=== PATIENT | male | born 1960 | race Caucasian/White ===

== ENCOUNTER 2017-09-01 23:05 | Emergency (ER) | payer MEDICARE ==
[2017-09-01 23:12] VITALS: RESP 18
[2017-09-01] MEDS ORDERED: SODIUM CHLORIDE 0.9% 500 ML IV STA (23:34)
--- NOTE | 2017-09-01 23:42 | ED ---
Syncope HPI - General Chief Complaint: Syncope Stated Complaint: possible afib Time Seen by Provider: 09/01/17 23:15 Source: patient Mode of arrival: ambulatory Limitations: no limitations - History of Present Illness Initial Comments: This patient is 56-year-old man who presents with complaint that he believes is atrial fibrillation at [facility]. The patient states that he has had intermittent symptoms like this going on for about a year and has been told he has paroxysmal atrial fibrillation. Tonight around 4 hours ago, he started feeling somewhat lightheaded like he may pass out as well as feeling anxious. The patient states it came on while he was lying down but he felt that he needed to get up. When he tried to get up she felt like he was going to pass out. He also was feeling a little short of breath. The patient denies chest pain but states that he does have chronic neck pain. No diaphoresis. No nausea or vomiting. The patient states that he does feel better since he has been here. MD Complaint: felt faint, almost passed out Onset/Timin -: hour(s) Prodromal Symptoms: lightheaded, palpitations, shortness of breath, other ( Anxious) History: other (Atrial fibrillation) - Related Data Home Medications Medication Instructions Recorded Confirmed Cyclobenzaprine [Flexeril] 10 mg PO HS PRN 10/12/14 10/16/14 Gabapentin [Neurontin] 800 mg PO HS 10/12/14 10/16/14 HYDROcodone/APAP 10-325MG [[place] 1 each PO Q6H PRN 10/12/14 10/16/14 10] Previous Rx's Medication Instructions Recorded HYDROcodone/APAP 7.5-325MG [[place] 1 each PO Q4H PRN #60 tab 10/19/14 7.5] Azithromycin [Zithromax Z-pack] 250 mg PO DIRECTED #6 tab 09/02/17 Allergies Allergy/AdvReac Type Severity Reaction Status Date / Time No Known Allergies Allergy Verified 09/01/17 23:12 Review of Systems ROS Statement: Those systems with pertinent positive or pertinent negative responses have been documented in the HPI. ROS Other: All systems not noted in ROS Statement are negative. Constitutional: Denies: fever, chills Eyes: Denies: vision change Respiratory: Reports: as per HPI, dyspnea. Denies: cough, wheezes Cardiovascular: Reports: syncope (Near syncope). Denies: chest pain, palpitations, orthopnea, edema Gastrointestinal: Denies: abdominal pain, nausea, vomiting Genitourinary: Denies: dysuria, hematuria Musculoskeletal: Reports: other (Chronic neck pain) Skin: Denies: rash Neurological: Denies: headache Psychiatric: Reports: anxiety Past Medical History Past Medical History: COPD Additional Past Medical History / Comment(s): 10/16/14 Pt admitted to the floor s /p reversal of colostomy. Other HX: RUPTURED DIVERTICULI. CHRONIC BACK PAIN ( CERVICAL & LUMBAR). History of Any Multi-Drug Resistant Organisms: None Reported Past Surgical History: Bowel Resection, Orthopedic Surgery Additional Past Surgical History / Comment(s): ARTHOscopy OF RIGHT KNEE. BOWEL RESECTION WITH COLOSTOMY (JUL 27, 2014 @ [facility], ). BENIGN TUMOR REMOVED AT BASE OF THROAT. Past Anesthesia/Blood Transfusion Reactions: No Reported Reaction Past Psychological History: No Psychological Hx Reported Smoking Status: Former smoker Past Alcohol Use History: None Reported Past Drug Use History: Marijuana - Past Family History Sister(s) Family Medical History: Liver Disease Additional Family Medical History / Comment(s): NON ETOH, CIRRHOSIS (). General Exam Limitations: no limitations General appearance: alert, in no apparent distress Head exam: Present: atraumatic, normocephalic Eye exam: Present: normal appearance. Absent: scleral icterus, conjunctival injection ENT exam: Present: normal oropharynx Neck exam: Present: normal inspection Respiratory exam: Present: normal lung sounds bilaterally. Absent: respiratory distress, wheezes, rales, rhonchi, stridor, chest wall tenderness Cardiovascular Exam: Present: normal rhythm, bradycardia (Rate approximately 56 at my exam), normal heart sounds. Absent: systolic murmur, diastolic murmur, rubs, gallop GI/Abdominal exam: Present: soft. Absent: distended, tenderness, guarding, rebound, rigid, mass Extremities exam: Present: normal inspection, normal capillary refill. Absent: pedal edema, calf tenderness Back exam: Present: normal inspection. Absent: CVA tenderness (R), CVA tenderness (L) Neurological exam: Present: alert Skin exam: Present: warm, dry, intact, normal color. Absent: rash Course Vital Signs 09/01/17 23:09 Temperature 98.7 F Pulse Rate 63 Respiratory 18 Rate Blood Pressure 130/78 O2 Sat by Pulse 96 Oximetry EKG Findings - EKG Results: EKG: interpreted by ERMD, sinus rhythm (With sinus arrhythmia), normal axis, normal QRS, normal ST/T EKG shows: bradycardia (Rate 53 bpm) Medical Decision Making - Lab Data Result diagrams: 09/01/17 23:40 09/01/17 23:40 Lab Results 09/01/17 09/01/17 09/01/17 Range/Units 23:40 23:40 23:40 WBC 13.2 H (3.8-10.6) k/uL RBC 5.17 (4.30-5.90) m/uL Hgb 15.4 (13.0-17.5) gm/dL Hct 47.5 (39.0-53.0) % MCV 91.9 (80.0-100.0) fL MCH 29.7 (25.0-35.0) pg MCHC 32.3 (31.0-37.0) g/dL RDW 13.9 (11.5-15.5) % Plt Count 272 (150-450) k/uL Neutrophils % 80 % Lymphocytes % 12 % Monocytes % 5 % Eosinophils % 1 % Basophils % 1 % Neutrophils # 10.5 H (1.3-7.7) k/uL Lymphocytes # 1.6 (1.0-4.8) k/uL Monocytes # 0.7 (0-1.0) k/uL Eosinophils # 0.1 (0-0.7) k/uL Basophils # 0.1 (0-0.2) k/uL Sodium 142 (137-145) mmol/L Potassium 4.5 (3.5-5.1) mmol/L Chloride 108 H (98-107) mmol/L Carbon Dioxide 24 (22-30) mmol/L Anion Gap 10 mmol/L BUN 19 (9-20) mg/dL Creatinine 0.80 (0.66-1.25) mg/dL Est GFR (MDRD) Af Amer >60 (>60 ml/min/1.73 sqM) Est GFR (MDRD) Non-Af >60 (>60 ml/min/1.73 sqM) Glucose 115 H (74-99) mg/dL Calcium 10.0 (8.4-10.2) mg/dL Magnesium 2.0 (1.6-2.3) mg/dL Total Bilirubin 0.2 (0.2-1.3) mg/dL AST 23 (17-59) U/L ALT 31 (21-72) U/L Alkaline Phosphatase 53 (38-126) U/L Total Creatine Kinase 89 (55-170) U/L Total Protein 6.2 L (6.3-8.2) g/dL Albumin 3.9 (3.5-5.0) g/dL Disposition Clinical Impression: Pneumonia Disposition: HOME SELF-CARE Condition: Good Instructions: Pneumonia (ED) Prescriptions: Azithromycin [Zithromax Z-pack] 250 mg PO DIRECTED #6 tab Referrals: Betina Rothman MD [Primary Care Provider] - 1-2 days
[2017-09-02 00:06] LABS: Basophils # (A) 0.1 k/uL (0-0.2); Basophils % (A) 1 %; Eosinophils # (A) 0.1 k/uL (0-0.7); Eosinophils % (A) 1 %; HCT 47.5 % (39.0-53.0); HGB 15.4 gm/dL (13.0-17.5); Lymphocytes # (A) 1.6 k/uL (1.0-4.8); Lymphocytes % (A) 12 %; MCH 29.7 pg (25.0-35.0); MCHC 32.3 g/dL (31.0-37.0); MCV 91.9 fL (80.0-100.0); Mean Platelet Volume 8.1; Monocytes # (A) 0.7 k/uL (0-1.0); Monocytes % (A) 5 %; Neutrophils # (A) 10.5 k/uL (1.3-7.7); Neutrophils % (A) 80 %; Platelet Count 272 k/uL (150-450); RBC 5.17 m/uL (4.30-5.90); RDW 13.9 % (11.5-15.5); WBC 13.2 k/uL (3.8-10.6)
[2017-09-02 00:18] LABS: ALT 31 U/L (21-72); AST 23 U/L (17-59); Albumin 3.9 g/dL (3.5-5.0); Alkaline Phosphatase 53 U/L (38-126); Anion Gap 10 mmol/L; Blood Urea Nitrogen 19 mg/dL (9-20); Carbon Dioxide 24 mmol/L (22-30); Chloride 108 mmol/L (98-107); Glucose 115 mg/dL (74-99); Potassium 4.5 mmol/L (3.5-5.1); Sodium 142 mmol/L (137-145); Total Bilirubin 0.2 mg/dL (0.2-1.3); Total Protein 6.2 g/dL (6.3-8.2)
[2017-09-02 00:24] LABS: Creatine Kinase 89 U/L (55-170)
--- NOTE | 2017-09-02 00:24 | XR ---
EXAM: XR Chest, 1 View CLINICAL HISTORY: Reason: syncope TECHNIQUE: Frontal view of the chest. COMPARISON: None. FINDINGS: Lungs: Unremarkable. No consolidation. Pleural space: Small left pleural effusion. No large pneumothorax. Heart: Unremarkable. No cardiomegaly. Mediastinum: Unremarkable. Bones/joints: Unremarkable. IMPRESSION: Small left pleural effusion. Infection cannot be excluded.
[2017-09-02 00:30] LABS: D-Dimer <0.17 mg/L FEU (<0.60); INR 1.1 (<1.2); Partial Thromboplastin Time 27.3 sec (22.0-30.0); Prothrombin Time 10.7 sec (9.0-12.0)
[2017-09-02 00:37] LABS: Creatine Kinase MB 0.8 ng/mL (0.0-2.4); Troponin I <0.012 ng/mL (0.000-0.034)
[2017-09-02] MEDS ORDERED: cefTRIAXone IN SWFI 1,000 MG/10 ML SYRINGE IVP STA (00:37)
[2017-09-02] MEDS ORDERED: AZITHROMYCIN 500 MG TAB PO STA (00:37)
[2017-09-02 01:28] LABS: Appearance,Urine Clear (Clear); Bilirubin,Urine Negative (Negative); Blood,Urine Negative (Negative); Color,Urine Light Yellow; Glucose,Urine (UA) Negative (Negative); Ketones,Urine Negative (Negative); Leukocyte Esterase,Urine Negative (Negative); Nitrite,Urine Negative (Negative); Protein,Urine Negative (Negative); Specific Gravity,Urine 1.008 (1.001-1.035); Urobilinogen,Urine <2.0 mg/dL (<2.0)
[2017-09-02 02:38] VITALS: BP 128/73; PULSE 62; TEMP 98.3
== END 2017-09-02 02:38 | disposition home or self-care (01) ==
LOC: EC 23:05
DX: J18.9 Pneumonia, unspecified organism (principal); I48.91 Unspecified atrial fibrillation; Z79.899 Other long term (current) drug therapy; Z87.891 Personal history of nicotine dependence
CPT/HCPCS: 36415; 93005; 85379; 80053; 82550; 82553; 83735; 84484; 85025; 85610; 85730; 81003; 71045; 99284; 96374; J0696

== ENCOUNTER 2017-10-05 22:53 | Emergency (ER) | payer MEDICARE ==
[2017-10-05 23:01] VITALS: TEMP 97
[2017-10-05] MEDS ORDERED: SODIUM CHLORIDE 0.9% 1,000 ML IV STA (23:32)
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
[2017-10-05 23:48] VITALS: RESP 16
--- NOTE | 2017-10-06 00:17 | XR ---
EXAMINATION TYPE: XR chest 2V DATE OF EXAM: 10/06/2017 COMPARISON: 09/01/2017 HISTORY: Difficulty breathing TECHNIQUE: Frontal and lateral views of the chest are obtained. FINDINGS: There is slight blunting of left costophrenic angle. Heart size is normal. There are no hi lar masses. There are chest leads. Bony thorax is intact. IMPRESSION: There is pleural diaphragmatic scarring at the lateral left lung base without change com pared to old exam. Normal heart.
[2017-10-06 00:22] LABS: Basophils # (A) 0.1 k/uL (0-0.2); Basophils % (A) 1 %; Eosinophils # (A) 0.2 k/uL (0-0.7); Eosinophils % (A) 2 %; HCT 47.5 % (39.0-53.0); HGB 16.2 gm/dL (13.0-17.5); Lymphocytes # (A) 1.8 k/uL (1.0-4.8); Lymphocytes % (A) 15 %; MCH 30.8 pg (25.0-35.0); MCHC 34.1 g/dL (31.0-37.0); MCV 90.4 fL (80.0-100.0); Monocytes # (A) 0.7 k/uL (0-1.0); Monocytes % (A) 6 %; Neutrophils % (A) 75 %; Platelet Count 272 k/uL (150-450); RBC 5.25 m/uL (4.30-5.90); RDW 13.2 % (11.5-15.5)
[2017-10-06 00:31] LABS: ALT 30 U/L (21-72); AST 24 U/L (17-59); Albumin 4.2 g/dL (3.5-5.0); Alkaline Phosphatase 53 U/L (38-126); Anion Gap 8 mmol/L; Blood Urea Nitrogen 18 mg/dL (9-20); Calcium 9.9 mg/dL (8.4-10.2); Carbon Dioxide 28 mmol/L (22-30); Chloride 104 mmol/L (98-107); Glucose 103 mg/dL (74-99); Potassium 4.4 mmol/L (3.5-5.1); Sodium 140 mmol/L (137-145); Total Bilirubin 0.3 mg/dL (0.2-1.3); Total Protein 6.5 g/dL (6.3-8.2)
[2017-10-06 00:34] LABS: Creatine Kinase 147 U/L (55-170)
[2017-10-06 00:35] LABS: INR 1.1 (<1.2); Partial Thromboplastin Time 26.3 sec (22.0-30.0); Prothrombin Time 10.3 sec (9.0-12.0)
[2017-10-06 00:47] LABS: Creatine Kinase MB 0.9 ng/mL (0.0-2.4); Troponin I <0.012 ng/mL (0.000-0.034)
[2017-10-06 01:04] VITALS: BP 107/63; PULSE 51
== END 2017-10-06 01:09 | disposition home or self-care (01) ==
LOC: EC 22:53
DX: R00.1 Bradycardia, unspecified (principal); Z79.899 Other long term (current) drug therapy; I48.91 Unspecified atrial fibrillation; Z87.891 Personal history of nicotine dependence
CPT/HCPCS: 36415; 71046; 80053; 82550; 82553; 84484; 85025; 85610; 85730; 93005; 96360; 99285

== ENCOUNTER 2017-11-11 16:02 | Emergency (ER) | payer MEDICARE ==
[2017-11-11 16:06] VITALS: RESP 18; TEMP 97.5
--- NOTE | 2017-11-11 16:28 | ED ---
General Adult HPI - General Chief complaint: Arrhythmia/Palpitations Stated complaint: AFib Time Seen by Provider: 11/11/17 16:08 Source: patient, RN notes reviewed, old records reviewed Mode of arrival: ambulatory Limitations: no limitations - History of Present Illness Initial comments: 56-year-old male presents for evaluation of palpitations. Patient has history of A. fib, he has been having intermittent palpitations throughout the past month. He states he feels his heart racing, feels a lump in his throat with some mild dyspnea. Patient has no history of coronary artery disease. He is not currently on blood thinners. He is taking atenolol which previously was 25 mg daily now he is taking 12.5 mg of atenolol daily. Denies any chest pain. Denies any arm pain. No nausea vomiting. No history of cough or fever. Patient feels well at the time of my evaluation. - Related Data Home Medications Medication Instructions Recorded Confirmed Albuterol Nebulized [Ventolin 2.5 mg INHALATION BID PRN 10/05/17 10/05/17 Nebulized] Atenolol [Tenormin] 25 mg PO DAILY 10/05/17 10/05/17 Gabapentin [Neurontin] 400 mg PO BID 10/05/17 10/05/17 Previous Rx's Medication Instructions Recorded Atenolol [Tenormin] 12.5 mg PO DAILY #30 dose 10/06/17 Azithromycin [Zithromax Z-pack] 250 mg PO DIRECTED #6 tab 10/06/17 predniSONE 20 mg PO DAILY #5 tab 10/06/17 Allergies Allergy/AdvReac Type Severity Reaction Status Date / Time No Known Allergies Allergy Verified 11/11/17 16:06 Review of Systems ROS Statement: Those systems with pertinent positive or pertinent negative responses have been documented in the HPI. ROS Other: All systems not noted in ROS Statement are negative. Past Medical History Past Medical History: Atrial Fibrillation, COPD Additional Past Medical History / Comment(s): 10/16/14 Pt admitted to the floor s /p reversal of colostomy. Other HX: RUPTURED DIVERTICULI. CHRONIC BACK PAIN ( CERVICAL & LUMBAR). History of Any Multi-Drug Resistant Organisms: None Reported Past Surgical History: Bowel Resection, Orthopedic Surgery Additional Past Surgical History / Comment(s): ARTHOscopy OF RIGHT KNEE. BOWEL RESECTION WITH COLOSTOMY (JUL 27, 2014 @ [facility]). BENIGN TUMOR REMOVED AT BASE OF THROAT. Past Anesthesia/Blood Transfusion Reactions: No Reported Reaction Past Psychological History: No Psychological Hx Reported Smoking Status: Former smoker Past Alcohol Use History: None Reported Past Drug Use History: Marijuana - Past Family History Sister(s) Family Medical History: Liver Disease Additional Family Medical History / Comment(s): NON ETOH, CIRRHOSIS (). General Exam Limitations: no limitations General appearance: alert, in no apparent distress Head exam: Present: atraumatic, normocephalic Eye exam: Present: normal appearance, PERRL ENT exam: Present: normal exam Neck exam: Present: normal inspection. Absent: tenderness, meningismus Respiratory exam: Present: normal lung sounds bilaterally. Absent: respiratory distress, wheezes Cardiovascular Exam: Present: normal rhythm, bradycardia GI/Abdominal exam: Present: soft. Absent: distended, tenderness, guarding Extremities exam: Present: normal inspection, normal capillary refill. Absent: pedal edema Back exam: Present: normal inspection, full ROM Neurological exam: Present: alert, oriented X3, CN II-XII intact. Absent: motor sensory deficit Psychiatric exam: Present: normal affect, normal mood Skin exam: Present: warm, dry, intact. Absent: cyanosis, diaphoretic Course Vital Signs 11/11/17 11/11/17 16:03 16:53 Temperature 97.5 F L Pulse Rate 47 L 49 L Respiratory 18 18 Rate Blood Pressure 126/82 119/77 O2 Sat by Pulse 92 L 97 Oximetry - Reevaluation(s) Reevaluation #1: 11/11/17 16:42 Patient does not wish to have chest x-ray. This order was canceled. Lungs are clear bilaterally. EKG Findings - EKG Comments: EKG Findings:: EKG sinus bradycardia, rate of 45, ID interval 148, QRS duration 86, QTC 344, no signs of ischemia, ID interval is normal. Medical Decision Making - Medical Decision Making 56-year-old male presenting with palpitations. Patient has been dealing with these symptoms for approximately one month. He does have history of atrial fibrillation currently on atenolol. EKG shows sinus bradycardia, no signs of ischemia. Blood pressure remained stable while the emergency department. His heart rate fluctuates between 45 and 55 on the monitor. He is asymptomatic. He is scheduled for a heart monitor which should be arriving in his house in the next several days. This was ordered by cardiology. He will monitor heart rate at home as well as blood pressure. He will continue taking his atenolol. He will follow-up with cardiology. All laboratory studies are within normal limits, negative troponin - Lab Data Result diagrams: 11/11/17 16:26 11/11/17 16:26 Lab Results 11/11/17 11/11/17 11/11/17 Range/Units 16:26 16:26 16:26 WBC 10.5 (3.8-10.6) k/uL RBC 5.54 (4.30-5.90) m/uL Hgb 17.4 (13.0-17.5) gm/dL Hct 48.4 (39.0-53.0) % MCV 87.3 (80.0-100.0) fL MCH 31.4 (25.0-35.0) pg MCHC 35.9 (31.0-37.0) g/dL RDW 13.0 (11.5-15.5) % Plt Count 317 (150-450) k/uL Neutrophils % 63 % Lymphocytes % 25 % Monocytes % 6 % Eosinophils % 3 % Basophils % 0 % Neutrophils # 6.6 (1.3-7.7) k/uL Lymphocytes # 2.6 (1.0-4.8) k/uL Monocytes # 0.7 (0-1.0) k/uL Eosinophils # 0.3 (0-0.7) k/uL Basophils # 0.0 (0-0.2) k/uL PT (9.0-12.0) sec INR (<1.2) APTT (22.0-30.0) sec Sodium 144 (137-145) mmol/L Potassium 4.9 (3.5-5.1) mmol/L Chloride 107 (98-107) mmol/L Carbon Dioxide 23 (22-30) mmol/L Anion Gap 14 mmol/L BUN 13 (9-20) mg/dL Creatinine 0.70 (0.66-1.25) mg/dL Est GFR (CKD-EPI)AfAm >90 (>60 ml/min/1.73 sqM) Est GFR (CKD-EPI)NonAf >90 (>60 ml/min/1.73 sqM) Glucose 116 H (74-99) mg/dL Calcium 10.2 (8.4-10.2) mg/dL Magnesium 2.2 (1.6-2.3) mg/dL Total Bilirubin 0.6 (0.2-1.3) mg/dL AST 29 (17-59) U/L ALT 26 (21-72) U/L Alkaline Phosphatase 48 (38-126) U/L Total Creatine Kinase 68 (55-170) U/L CK-MB (CK-2) 0.6 (0.0-2.4) ng/mL CK-MB (CK-2) Rel Index 0.9 Troponin I <0.012 (0.000-0.034) ng/mL Total Protein 7.2 (6.3-8.2) g/dL Albumin 4.5 (3.5-5.0) g/dL 11/11/17 Range/Units 16:26 WBC (3.8-10.6) k/uL RBC (4.30-5.90) m/uL Hgb (13.0-17.5) gm/dL Hct (39.0-53.0) % MCV (80.0-100.0) fL MCH (25.0-35.0) pg MCHC (31.0-37.0) g/dL RDW (11.5-15.5) % Plt Count (150-450) k/uL Neutrophils % % Lymphocytes % % Monocytes % % Eosinophils % % Basophils % % Neutrophils # (1.3-7.7) k/uL Lymphocytes # (1.0-4.8) k/uL Monocytes # (0-1.0) k/uL Eosinophils # (0-0.7) k/uL Basophils # (0-0.2) k/uL PT 10.8 (9.0-12.0) sec INR 1.1 (<1.2) APTT 26.7 (22.0-30.0) sec Sodium (137-145) mmol/L Potassium (3.5-5.1) mmol/L Chloride (98-107) mmol/L Carbon Dioxide (22-30) mmol/L Anion Gap mmol/L BUN (9-20) mg/dL Creatinine (0.66-1.25) mg/dL Est GFR (CKD-EPI)AfAm (>60 ml/min/1.73 sqM) Est GFR (CKD-EPI)NonAf (>60 ml/min/1.73 sqM) Glucose (74-99) mg/dL Calcium (8.4-10.2) mg/dL Magnesium (1.6-2.3) mg/dL Total Bilirubin (0.2-1.3) mg/dL AST (17-59) U/L ALT (21-72) U/L Alkaline Phosphatase (38-126) U/L Total Creatine Kinase (55-170) U/L CK-MB (CK-2) (0.0-2.4) ng/mL CK-MB (CK-2) Rel Index Troponin I (0.000-0.034) ng/mL Total Protein (6.3-8.2) g/dL Albumin (3.5-5.0) g/dL Disposition Clinical Impression: Palpitations, Sinus bradycardia Disposition: HOME SELF-CARE Condition: Good Instructions: Palpitations (ED) Referrals: Betina Rothman MD [Primary Care Provider] - 1-2 days Kirill Callejas MD [STAFF PHYSICIAN] - 1-2 days Time of Disposition: 18:30
[2017-11-11 16:35] LABS: Basophils % (A) 0 %; Eosinophils # (A) 0.3 k/uL (0-0.7); Eosinophils % (A) 3 %; HCT 48.4 % (39.0-53.0); HGB 17.4 gm/dL (13.0-17.5); Lymphocytes # (A) 2.6 k/uL (1.0-4.8); Lymphocytes % (A) 25 %; MCH 31.4 pg (25.0-35.0); MCHC 35.9 g/dL (31.0-37.0); MCV 87.3 fL (80.0-100.0); Mean Platelet Volume 7.5; Monocytes # (A) 0.7 k/uL (0-1.0); Monocytes % (A) 6 %; Neutrophils # (A) 6.6 k/uL (1.3-7.7); Neutrophils % (A) 63 %; Platelet Count 317 k/uL (150-450); RBC 5.54 m/uL (4.30-5.90); WBC 10.5 k/uL (3.8-10.6)
[2017-11-11 16:55] LABS: INR 1.1 (<1.2); Partial Thromboplastin Time 26.7 sec (22.0-30.0); Prothrombin Time 10.8 sec (9.0-12.0)
[2017-11-11 16:56] LABS: ALT 26 U/L (21-72); AST 29 U/L (17-59); Albumin 4.5 g/dL (3.5-5.0); Alkaline Phosphatase 48 U/L (38-126); Anion Gap 14 mmol/L; Blood Urea Nitrogen 13 mg/dL (9-20); Calcium 10.2 mg/dL (8.4-10.2); Carbon Dioxide 23 mmol/L (22-30); Chloride 107 mmol/L (98-107); Glucose 116 mg/dL (74-99); Magnesium 2.2 mg/dL (1.6-2.3); Potassium 4.9 mmol/L (3.5-5.1); Sodium 144 mmol/L (137-145); Total Bilirubin 0.6 mg/dL (0.2-1.3); Total Protein 7.2 g/dL (6.3-8.2)
[2017-11-11 17:06] LABS: Creatine Kinase 68 U/L (55-170)
[2017-11-11 17:20] LABS: Creatine Kinase MB 0.6 ng/mL (0.0-2.4); Troponin I <0.012 ng/mL (0.000-0.034)
[2017-11-11 18:39] VITALS: BP 151/90; PULSE 54
== END 2017-11-11 18:39 | disposition home or self-care (01) ==
LOC: EC 16:02
DX: R00.1 Bradycardia, unspecified (principal); R00.2 Palpitations; R06.00 Dyspnea, unspecified; I48.91 Unspecified atrial fibrillation; Z87.891 Personal history of nicotine dependence; Z79.899 Other long term (current) drug therapy
CPT/HCPCS: 36415; 80053; 82550; 82553; 83735; 84484; 85025; 85610; 85730; 93005; 99285

== ENCOUNTER 2017-11-28 08:38 | Day surgery (SDC) | payer MEDICARE ==
[2017-11-23 15:22] VITALS: BMI 22.0
[~2017-11-28 08:38] MED LIST: LACTATED RINGERS 1,000 ML IV SCH
[2017-11-28 10:28] VITALS: TEMP 97.4
[2017-11-28] MEDS ORDERED: LIDOCAINE 1% 20 ML VIAL (10MG/ML) FOR IV START INTRADERMA ONE (10:32)
[2017-11-28] MEDS ORDERED: PROPOFOL 10 MG/ML 20 ML VIAL IV ONE (11:02)
[2017-11-28] MEDS ORDERED: LIDOCAINE 1% INJ 10MG/ML (20 ML MDV) ONE (11:02)
--- NOTE | 2017-11-28 11:14 | P.GSHP ---
History of Present Illness H&P Date: 11/28/17 Chief Complaint: Epigastric dull pain This a 56-year-old male who's had complaints of epigastric abdominal pain. He presents today for EGD. Past Medical History Past Medical History: Atrial Fibrillation Additional Past Medical History / Comment(s): HX OF DIVERTICULITIS (BOWEL RESECTION COLOSTOMY & REVERSAL), BACK PAIN - USES CANE PRN., PT UNSURE OF A-FIB - CURRENTLY HAS HEART MONITOR ON., WAS SEEN IN ER 11/11/17 -HEART RACING, DYSPNEA (MPH). History of Any Multi-Drug Resistant Organisms: None Reported Past Surgical History: Bowel Resection, Orthopedic Surgery Additional Past Surgical History / Comment(s): ARTHOscopy OF RIGHT KNEE. BOWEL RESECTION WITH COLOSTOMY (JUL 27, 2014 @ [facility], ). , REVERSAL OF COLOSTOMY., BENIGN TUMOR REMOVED AT BASE OF THROAT. Past Anesthesia/Blood Transfusion Reactions: No Reported Reaction Past Psychological History: No Psychological Hx Reported Additional Psychological History / Comment(s): . Smoking Status: Former smoker Past Alcohol Use History: Occasional Additional Past Alcohol Use History / Comment(s): QUIT SMOKING 2013, SMOKED 1 PPD. SMOKED FOR 25 YEARS. Past Drug Use History: Marijuana Additional Drug Use History / Comment(s): CURRENT MARIJUANA USE. - Past Family History Mother Family Medical History: Cancer Sister(s) Family Medical History: Liver Disease Additional Family Medical History / Comment(s): NON ETOH, CIRRHOSIS (). Medications and Allergies Home Medications Medication Instructions Recorded Confirmed Type Albuterol Nebulized [Ventolin 2.5 mg INHALATION BID PRN 10/05/17 11/23/17 History Nebulized] Atenolol [Tenormin] 12.5 mg PO DAILY 10/05/17 11/23/17 History Gabapentin [Neurontin] 400 mg PO HS 10/05/17 11/23/17 History Aspirin [Adult Low Dose Aspirin EC] 81 mg PO DIRECTED 11/23/17 11/23/17 History Flexeril (Unknown Dose) 1 tab PO DIRECTED PRN 11/23/17 11/28/17 History Omeprazole 40 mg PO DAILY 11/23/17 11/23/17 History Allergies Allergy/AdvReac Type Severity Reaction Status Date / Time No Known Allergies Allergy Verified 11/23/17 15:04 Surgical - Exam Vital Signs Temp Pulse Resp BP Pulse Ox 97.4 F L 51 L 18 118/76 96 11/28/17 10:25 11/28/17 10:25 11/28/17 10:25 11/28/17 10:11/28/17 10:25 - General well developed, no distress - Eyes PERRL - ENT normal pinna - Respiratory normal expansion - Cardiovascular Rhythm: regular - Abdomen Abdomen: soft, non tender Assessment and Plan Assessment: Epigastric abdominal pain. We'll perform EGD to evaluate for possible gastritis.
--- NOTE | 2017-11-28 11:18 | P.OP ---
Date of Procedure: 11/28/17 Preoperative Diagnosis: Gastritis Postoperative Diagnosis: Mild antral gastritis Small sliding hiatal hernia Mild esophagitis Procedure(s) Performed: EGD Anesthesia: MAC Surgeon: Viraj Lopez Pathology: other (Antrum, esophagus) Condition: stable Disposition: PACU Description of Procedure: The patient's placed on the endoscopy table in the lateral position. He received IV sedation. The gastroscope placed oropharynx and passed into the esophagus and into the stomach. Scope was then placed through the pylorus. The first and second portion of the duodenum appeared normal. The scope was then brought back the antrum this was mildly inflamed. A biopsies performed. The scope was then retroflexed and the remainder stomach appeared normal. The hiatus was examined and there was a small sliding hiatal hernia. The GE junction was at 38 cm. The distal esophagus appeared mildly inflamed a biopsies performed. The proximal esophagus appeared normal. Scope was withdrawn for patient.
[2017-11-28 12:50] VITALS: BP 107/72; PULSE 48; RESP 18
--- NOTE | 2017-11-28 16:33 | NM ---
EXAMINATION TYPE: NM hepatobiliary w CCK DATE OF EXAM: 11/28/2017 COMPARISON: Ultrasound abdomen 05/24/2016 HISTORY: Abdominal pain TECHNIQUE: After the intravenous administration of 5.19 mCi Tc 99m Mebrofenin hepatobiliary scintigra phy is performed. Immediate images post injection. FINDINGS: There is satisfactory initial accumulation of tracer by the liver. The gallbladder is visualized wit hin 10 minutes. The small bowel activity is noted on delayed images. At one hour CCK was administer ed, patient was injected with 1.4 mcg of Kinevac, and gallbladder ejection fraction is calculated at 5 %, abnormal. Therefore there is no scintigraphic evidence of cystic or common bile duct obstructio n to suggest acute cholecystitis or gallbladder dyskinesia. IMPRESSION: Abnormal low gallbladder ejection fraction, delayed visualization of the small bowel
== END 2017-11-28 13:41 | disposition home or self-care (01) ==
LOC: ORWHC2ENDO 08:38
PROVIDERS: ATTEND Surgery
DX: K29.50 Unspecified chronic gastritis without bleeding (principal); K44.9 Diaphragmatic hernia without obstruction or gangrene; K21.0 Gastro-esophageal reflux disease with esophagitis; I48.91 Unspecified atrial fibrillation; I10 Essential (primary) hypertension; Z79.82 Long term (current) use of aspirin; Z87.891 Personal history of nicotine dependence; Z79.899 Other long term (current) drug therapy; Z90.49 Acquired absence of other specified parts of digestive tract
CPT/HCPCS: 88305; 78227; 43239; A9537; J2805; J2001; J2704

== ENCOUNTER 2017-12-28 07:54 | Day surgery (SDC) | payer MEDICARE ==
[~2017-12-28 07:54] MED LIST changes: +DEXAMETHASONE SOD PHOSPHATE 10 MG/ML 1 ML VIAL IV ONE; +HEPARIN SODIUM,PORCINE 5,000 UNIT/ML 1 ML VIAL SQ ONE; +MIDAZOLAM 2 MG/2 ML VIAL IV PRN; +ONDANSETRON 4 MG/2 ML VIAL IVP ONE; +SCOPOLAMINE 1.5MG/72HR PATCH TRANSDERM ONE; +ceFAZolin IN SWFI 2 GM/20 ML SYRINGE IVP ONE; +fentaNYL (PF) 50 MCG/ML 2 ML AMP IV PRN
[2017-12-28] MEDS ORDERED: LIDOCAINE 1% 20 ML VIAL (10MG/ML) FOR IV START INTRADERMA ONE (08:29)
--- NOTE | 2017-12-28 08:51 | P.GSHP ---
History of Present Illness H&P Date: 12/28/17 Chief Complaint: Right upper quadrant pain This is a 57-year-old male who presents today for laparoscopic cholecystectomy. Patient's had complaints of right upper quadrant pain. His recent HIDA scan shows abnormal ejection fraction consistent with biliary dyskinesia. Past Medical History Past Medical History: Atrial Fibrillation Additional Past Medical History / Comment(s): HX OF DIVERTICULITIS (BOWEL RESECTION COLOSTOMY & REVERSAL). BACK PAIN - USES CANE PRN., History of Any Multi-Drug Resistant Organisms: None Reported Past Surgical History: Bowel Resection, Orthopedic Surgery Additional Past Surgical History / Comment(s): ARTHOscopy OF RIGHT KNEE. BOWEL RESECTION WITH COLOSTOMY (JUL 27, 2014 @ [facility], ). , REVERSAL OF COLOSTOMY. BENIGN TUMOR REMOVED AT BASE OF THROAT. Past Anesthesia/Blood Transfusion Reactions: No Reported Reaction Past Psychological History: No Psychological Hx Reported Smoking Status: Former smoker Past Alcohol Use History: Occasional Additional Past Alcohol Use History / Comment(s): QUIT SMOKING 2013, SMOKED 1 PPD. SMOKED FOR 25 YEARS. Past Drug Use History: Marijuana Additional Drug Use History / Comment(s): CURRENT MARIJUANA USE, medical card - Past Family History Mother Family Medical History: Cancer Sister(s) Family Medical History: Liver Disease Additional Family Medical History / Comment(s): NON ETOH, CIRRHOSIS (). Medications and Allergies Home Medications Medication Instructions Recorded Confirmed Type Gabapentin [Neurontin] 400 mg PO HS 10/05/17 12/28/17 History Omeprazole 40 mg PO QAM 11/23/17 12/28/17 History Cholecalciferol [Vitamin D3] 5,000 unit PO DAILY 12/26/17 12/28/17 History Cyclobenzaprine HCl 5 mg PO DAILY PRN 12/26/17 12/28/17 History [Cyclobenzaprine HCl] Allergies Allergy/AdvReac Type Severity Reaction Status Date / Time No Known Allergies Allergy Verified 12/26/17 08:55 Surgical - Exam Vital Signs Temp Pulse Resp BP Pulse Ox 97.2 F L 58 L 16 123/74 95 12/28/17 08:17 12/28/17 08:17 12/28/17 08:17 12/28/17 08:17 12/28/17 08:17 - General well developed, no distress - Eyes PERRL - ENT normal pinna - Neck no masses - Respiratory normal expansion - Cardiovascular Rhythm: regular - Abdomen Abdomen: soft, non tender Assessment and Plan Assessment: Right upper quadrant pain. Bili dysphagia We'll perform laparoscopic cholecystectomy
[2017-12-28] MEDS ORDERED: NEOSTIGMINE 1 MG/ML 10 ML VIAL ONE (09:03)
[2017-12-28] MEDS ORDERED: KETOROLAC 30 MG/ML 1 ML VIAL ONE (09:03)
[2017-12-28] MEDS ORDERED: GLYCOPYRROLATE 0.2 MG/ML 2 ML VIAL ONE (09:03)
[2017-12-28] MEDS ORDERED: LIDOCAINE 1% INJ 10MG/ML (20 ML MDV) ONE (09:03)
[2017-12-28] MEDS ORDERED: MIDAZOLAM 2 MG/2 ML VIAL ONE (09:03)
[2017-12-28] MEDS ORDERED: SUCCINYLCHOLINE CHLORIDE 100 MG/5 ML SYR IV ONE (09:03)
[2017-12-28] MEDS ORDERED: MORPHINE SULFATE 10 MG/ML SYRINGE ONE (09:03)
[2017-12-28] MEDS ORDERED: ROCURONIUM BROMIDE 10 MG/ML 10 ML VIAL IV ONE (09:03)
[2017-12-28] MEDS ORDERED: PROPOFOL 10 MG/ML 20 ML VIAL IV ONE (09:03)
[2017-12-28] MEDS ORDERED: fentaNYL (PF) 50 MCG/ML 2 ML AMP ONE (09:03)
[2017-12-28] MEDS ORDERED: BUPIVACAINE (PF) 0.5% 30 ML VIAL SQ ONE (09:30)
[2017-12-28 10:09] VITALS: TEMP 96.8
[2017-12-28] MEDS ORDERED: LACTATED RINGERS 1,000 ML IV ONE ×2 (10:37)
[2017-12-28 11:30] VITALS: BP 132/88; PULSE 45; RESP 18
--- NOTE | 2017-12-28 13:37 | P.OP ---
Date of Procedure: 12/28/17 Preoperative Diagnosis: Cholecystitis Postoperative Diagnosis: Cholecystitis Procedure(s) Performed: Laparoscopic cholecystectomy Anesthesia: LATONYA Surgeon: Viraj Lopez Estimated Blood Loss (ml): 5 Pathology: other (Gallbladder) Condition: stable Disposition: PACU Description of Procedure: The patient was placed on the operating table. The patient received a general endotracheal tube anesthesia. The patients abdomen was prepped and draped in the usual sterile fashion. Through an infraumbilical stab incision, the fascia of the anterior abdominal wall was grasped with a pair of Kochers and then the Veress needle was placed in the peritoneal cavity. Position of the Veress needle was confirmed with positive drop test. The abdomen was then insufflated. After adequate insufflation, the 10 mm trocar was placed in the peritoneal cavity. Following this the laparoscope was placed in the peritoneal cavity. The patient was placed in the head-up, right side up position and then a 5 mm trocar was placed in the right lateral and right subcostal position under direct visualization. A 8 mm trocar was placed in the epigastric position. The gallbladder was grasped in the fundus and infundibulum. Traction on the gallbladder was placed in the lateral and the cephalad positions. The triangle of Calot was visualized.. The cystic duct was bluntly dissected until the union of the cystic duct and common bile duct was seen. The cystic duct was then divided and sealed with the Harmonic scissors. A PDS Endoloop was then placed throughout the cystic duct stump. The cystic artery divided and sealed with the Harmonic scissors. The gallbladder was then removed from the liver bed using Harmonic scissors. The gallbladder was then extracted through the epigastric port site. Operative field was checked for any bleeding spots and Harmonic scissors was used to coagulate the liver bed. The abdomen was irrigated. The trocars were removed. The skin was closed using interrupted 3-0 Vicryl suture. Dermabond dressing were applied. The patient tolerated the procedure well.
== END 2017-12-28 12:13 | disposition home or self-care (01) ==
LOC: OR 07:54
PROVIDERS: ATTEND Surgery
DX: K81.1 Chronic cholecystitis (principal); I48.91 Unspecified atrial fibrillation; M54.9 Dorsalgia, unspecified; K21.9 Gastro-esophageal reflux disease without esophagitis; Z90.49 Acquired absence of other specified parts of digestive tract; Z79.899 Other long term (current) drug therapy; Z87.891 Personal history of nicotine dependence
CPT/HCPCS: 88304; 47562; J2250; J1644; J1100; J2710; J2270; J2405; J2001; J3010; J1885; J0330; J2704; J0690

== ENCOUNTER 2018-01-08 20:41 | Emergency (ER) | payer MEDICARE ==
[2018-01-08 20:48] VITALS: RESP 18
[2018-01-08] MEDS ORDERED: SODIUM CHLORIDE 0.9% 1,000 ML IV STA ×2 (21:14)
[2018-01-08 21:26] LABS: Basophils # (A) 0.1 k/uL (0-0.2); Basophils % (A) 1 %; Eosinophils # (A) 0.2 k/uL (0-0.7); Eosinophils % (A) 2 %; HCT 50.4 % (39.0-53.0); HGB 17.6 gm/dL (13.0-17.5); Lymphocytes # (A) 2.2 k/uL (1.0-4.8); Lymphocytes % (A) 17 %; MCH 31.3 pg (25.0-35.0); MCHC 34.9 g/dL (31.0-37.0); MCV 89.6 fL (80.0-100.0); Mean Platelet Volume 7.1; Monocytes # (A) 0.7 k/uL (0-1.0); Monocytes % (A) 5 %; Neutrophils # (A) 9.5 k/uL (1.3-7.7); Neutrophils % (A) 74 %; Platelet Count 330 k/uL (150-450); RBC 5.62 m/uL (4.30-5.90); RDW 13.1 % (11.5-15.5); WBC 12.8 k/uL (3.8-10.6)
[2018-01-08 21:38] LABS: INR 1.1 (<1.2); Partial Thromboplastin Time 27.1 sec (22.0-30.0); Prothrombin Time 10.6 sec (9.0-12.0)
--- NOTE | 2018-01-08 21:38 | ED ---
Arrhythmia/Palpitations HPI - General Chief Complaint: Arrhythmia/Palpitations Stated Complaint: Palptations Time Seen by Provider: 01/08/18 21:02 Source: patient, RN notes reviewed, old records reviewed Mode of arrival: ambulatory Limitations: no limitations - History of Present Illness Initial Comments: 57-year-old male presents emergency Department chief complaint of palpitations. He reports that he wear a media monitor and was cleared by Dr. Hitchcock with history of A. fib or abnormal heart beats. Patient states that he's been having symptoms intermittently for the past few months. He reports that it started today at 2:00 again. Patient relates that he has no significant pain. He reports this feels like his pulse was abnormal. He was started on atenolol aspirin by Dr. Hitchcock but was told to discontinue his 3 weeks ago. - Related Data Home Medications Medication Instructions Recorded Confirmed Gabapentin [Neurontin] 400 mg PO HS 10/05/17 01/08/18 Omeprazole 40 mg PO QAM 11/23/17 01/08/18 Cholecalciferol [Vitamin D3] 5,000 unit PO DAILY 12/26/17 01/08/18 Cyclobenzaprine HCl 5 mg PO DAILY PRN 12/26/17 01/08/18 [Cyclobenzaprine HCl] Allergies Allergy/AdvReac Type Severity Reaction Status Date / Time No Known Allergies Allergy Verified 01/08/18 21:02 Review of Systems ROS Statement: Those systems with pertinent positive or pertinent negative responses have been documented in the HPI. ROS Other: All systems not noted in ROS Statement are negative. Past Medical History Past Medical History: Atrial Fibrillation Additional Past Medical History / Comment(s): HX OF DIVERTICULITIS (BOWEL RESECTION COLOSTOMY & REVERSAL). BACK PAIN - USES CANE PRN., History of Any Multi-Drug Resistant Organisms: None Reported Past Surgical History: Bowel Resection, Cholecystectomy, Orthopedic Surgery Additional Past Surgical History / Comment(s): ARTHOscopy OF RIGHT KNEE. BOWEL RESECTION WITH COLOSTOMY (JUL 27, 2014 @ [facility], [place]). , REVERSAL OF COLOSTOMY. BENIGN TUMOR REMOVED AT BASE OF THROAT. Past Anesthesia/Blood Transfusion Reactions: No Reported Reaction Past Psychological History: No Psychological Hx Reported Smoking Status: Former smoker Past Alcohol Use History: Occasional Past Drug Use History: Marijuana - Past Family History Mother Family Medical History: Cancer Sister(s) Family Medical History: Liver Disease Additional Family Medical History / Comment(s): NON ETOH, CIRRHOSIS (). General Exam - General Exam Comments Initial Comments: This is a 57-year-old male. Alert and oriented. No significant distress. Limitations: no limitations General appearance: alert, in no apparent distress Head exam: Present: atraumatic, normocephalic, normal inspection Eye exam: Present: normal appearance, PERRL, EOMI. Absent: scleral icterus, conjunctival injection, periorbital swelling ENT exam: Present: normal exam, mucous membranes moist Neck exam: Present: normal inspection. Absent: tenderness, meningismus, lymphadenopathy Respiratory exam: Present: normal lung sounds bilaterally. Absent: respiratory distress, wheezes, rales, rhonchi, stridor Cardiovascular Exam: Present: regular rate, normal rhythm, normal heart sounds. Absent: systolic murmur, diastolic murmur, rubs, gallop, clicks GI/Abdominal exam: Present: soft, normal bowel sounds. Absent: distended, tenderness, guarding, rebound, rigid Extremities exam: Present: normal inspection, full ROM, normal capillary refill. Absent: tenderness, pedal edema, joint swelling, calf tenderness Back exam: Present: normal inspection Neurological exam: Present: alert, oriented X3, CN II-XII intact Psychiatric exam: Present: normal affect, normal mood Skin exam: Present: warm, dry, intact, normal color. Absent: rash Course Vital Signs 01/08/18 01/08/18 01/08/18 20:46 21:05 22:21 Temperature 97.5 F L Pulse Rate 69 75 58 L Pulse Rate [ 85 Sheep Killer ] Respiratory 18 18 18 Rate Blood Pressure 134/77 134/78 127/78 O2 Sat by Pulse 95 96 99 Oximetry 01/08/18 23:20 Temperature 98.3 F Pulse Rate 84 Pulse Rate [ Sheep Killer ] Respiratory 18 Rate Blood Pressure 140/85 O2 Sat by Pulse 96 Oximetry EKG Findings - EKG Comments: EKG Findings:: EKG shows A. fib with PVCs. Ventricular rate 60 spine. Heavenly's unaffected. QRS duration 82. QTQTC's recent 26/390 ms. Medical Decision Making - Medical Decision Making PAtient is a 57 year old male with CC of palpitations. EKG shows intermittent Afib with irregular ventricular rate. PAtient then spontaneously converted to NSR. He reports he felt better. Patient labs and CXR are unremarkable. Discussed concern as patient is only taking baby aspirin for anti coagulant, and concern for possibility of TIA and stroke. I discussed I would like to keep the Patient for observation however he refused. He states he also feels normal and well this time. He is in normal sinus rhythm. Discussed he needs to taking aspirin daily. He will follow up with Naldo in the morning. - Lab Data Result diagrams: 01/08/18 21:01 01/08/18 21: Lab Results 01/08/18 01/08/18 01/08/18 Range/Units 21: 21: 21: WBC 12.8 H (3.8-10.6) k/uL RBC 5.62 (4.30-5.90) m/uL Hgb 17.6 H (13.0-17.5) gm/dL Hct 50.4 (39.0-53.0) % MCV 89.6 (80.0-100.0) fL MCH 31.3 (25.0-35.0) pg MCHC 34.9 (31.0-37.0) g/dL RDW 13.1 (11.5-15.5) % Plt Count 330 (150-450) k/uL Neutrophils % 74 % Lymphocytes % 17 % Monocytes % 5 % Eosinophils % 2 % Basophils % 1 % Neutrophils # 9.5 H (1.3-7.7) k/uL Lymphocytes # 2.2 (1.0-4.8) k/uL Monocytes # 0.7 (0-1.0) k/uL Eosinophils # 0.2 (0-0.7) k/uL Basophils # 0.1 (0-0.2) k/uL PT (9.0-12.0) sec INR (<1.2) APTT (22.0-30.0) sec Sodium 143 (137-145) mmol/L Potassium 4.1 (3.5-5.1) mmol/L Chloride 102 (98-107) mmol/L Carbon Dioxide 27 (22-30) mmol/L Anion Gap 14 mmol/L BUN 13 (9-20) mg/dL Creatinine 0.70 (0.66-1.25) mg/dL Est GFR (CKD-EPI)AfAm >90 (>60 ml/min/1.73 sqM) Est GFR (CKD-EPI)NonAf >90 (>60 ml/min/1.73 sqM) Glucose 114 H (74-99) mg/dL Calcium 10.2 (8.4-10.2) mg/dL Magnesium 2.0 (1.6-2.3) mg/dL Total Bilirubin 0.4 (0.2-1.3) mg/dL AST 27 (17-59) U/L ALT 41 (21-72) U/L Alkaline Phosphatase 62 (38-126) U/L Total Creatine Kinase 93 (55-170) U/L CK-MB (CK-2) 0.7 (0.0-2.4) ng/mL CK-MB (CK-2) Rel Index 0.8 Troponin I <0.012 (0.000-0.034) ng/mL Total Protein 6.8 (6.3-8.2) g/dL Albumin 4.6 (3.5-5.0) g/dL TSH 2.960 (0.465-4.680) mIU/L Urine Color Urine Appearance (Clear) Urine pH (5.0-8.0) Ur Specific Everetts (1.001-1.035) Urine Protein (Negative) Urine Glucose (UA) (Negative) Urine Ketones (Negative) Urine Blood (Negative) Urine Nitrite (Negative) Urine Bilirubin (Negative) Urine Urobilinogen (<2.0) mg/dL Ur Leukocyte Esterase (Negative) Urine Opiates Screen (NotDetected) Ur Oxycodone Screen (NotDetected) Urine Methadone Screen (NotDetected) Ur Propoxyphene Screen (NotDetected) Ur Barbiturates Screen (NotDetected) U Tricyclic Antidepress (NotDetected) Ur Phencyclidine Scrn (NotDetected) Ur Amphetamines Screen (NotDetected) U Methamphetamines Scrn (NotDetected) U Benzodiazepines Scrn (NotDetected) Urine Cocaine Screen (NotDetected) U Marijuana (THC) Screen (NotDetected) 01/08/18 01/08/18 Range/Units 21:01 21:41 WBC (3.8-10.6) k/uL RBC (4.30-5.90) m/uL Hgb (13.0-17.5) gm/dL Hct (39.0-53.0) % MCV (80.0-100.0) fL MCH (25.0-35.0) pg MCHC (31.0-37.0) g/dL RDW (11.5-15.5) % Plt Count (150-450) k/uL Neutrophils % % Lymphocytes % % Monocytes % % Eosinophils % % Basophils % % Neutrophils # (1.3-7.7) k/uL Lymphocytes # (1.0-4.8) k/uL Monocytes # (0-1.0) k/uL Eosinophils # (0-0.7) k/uL Basophils # (0-0.2) k/uL PT 10.6 (9.0-12.0) sec INR 1.1 (<1.2) APTT 27.1 (22.0-30.0) sec Sodium (137-145) mmol/L Potassium (3.5-5.1) mmol/L Chloride (98-107) mmol/L Carbon Dioxide (22-30) mmol/L Anion Gap mmol/L BUN (9-20) mg/dL Creatinine (0.66-1.25) mg/dL Est GFR (CKD-EPI)AfAm (>60 ml/min/1.73 sqM) Est GFR (CKD-EPI)NonAf (>60 ml/min/1.73 sqM) Glucose (74-99) mg/dL Calcium (8.4-10.2) mg/dL Magnesium (1.6-2.3) mg/dL Total Bilirubin (0.2-1.3) mg/dL AST (17-59) U/L ALT (21-72) U/L Alkaline Phosphatase (38-126) U/L Total Creatine Kinase (55-170) U/L CK-MB (CK-2) (0.0-2.4) ng/mL CK-MB (CK-2) Rel Index Troponin I (0.000-0.034) ng/mL Total Protein (6.3-8.2) g/dL Albumin (3.5-5.0) g/dL TSH (0.465-4.680) mIU/L Urine Color Light Yellow Urine Appearance Clear (Clear) Urine pH 7.5 (5.0-8.0) Ur Specific Everetts 1.005 (1.001-1.035) Urine Protein Negative (Negative) Urine Glucose (UA) Negative (Negative) Urine Ketones Negative (Negative) Urine Blood Negative (Negative) Urine Nitrite Negative (Negative) Urine Bilirubin Negative (Negative) Urine Urobilinogen <2.0 (<2.0) mg/dL Ur Leukocyte Esterase Negative (Negative) Urine Opiates Screen Not Detected (NotDetected) Ur Oxycodone Screen Not Detected (NotDetected) Urine Methadone Screen Not Detected (NotDetected) Ur Propoxyphene Screen Not Detected (NotDetected) Ur Barbiturates Screen Not Detected (NotDetected) U Tricyclic Antidepress Not Detected (NotDetected) Ur Phencyclidine Scrn Not Detected (NotDetected) Ur Amphetamines Screen Not Detected (NotDetected) U Methamphetamines Scrn Not Detected (NotDetected) U Benzodiazepines Scrn Not Detected (NotDetected) Urine Cocaine Screen Not Detected (NotDetected) U Marijuana (THC) Screen Detected H (NotDetected) - Radiology Data Radiology results: report reviewed CXR is negative for any acute process. Disposition Clinical Impression: Paroxysmal A-fib Disposition: HOME SELF-CARE Condition: Good Instructions: Palpitations (ED) Additional Instructions: Patient is follow-up with Dr. Joshi in tomorrow. Make sure taking aspirin daily. Return to the emergency department if any alarming signs or symptoms occur. Is patient prescribed a controlled substance at d/c from ED?: No When asked, does pt state using other controlled substances?: No If prescribed controlled substance>3 days was MAPS reviewed?: No If opioid is for acute pain is fill amount 7 days or less?: No If Rx opioid, was Start Talking consent form obtained?: No Referrals: Betina Rothman MD [Primary Care Provider] - 1-2 days Kirill Callejas MD [STAFF PHYSICIAN] - 1-2 days Time of Disposition: 23:03
[2018-01-08 21:39] LABS: ALT 41 U/L (21-72); AST 27 U/L (17-59); Albumin 4.6 g/dL (3.5-5.0); Alkaline Phosphatase 62 U/L (38-126); Anion Gap 14 mmol/L; Blood Urea Nitrogen 13 mg/dL (9-20); Calcium 10.2 mg/dL (8.4-10.2); Carbon Dioxide 27 mmol/L (22-30); Chloride 102 mmol/L (98-107); Creatine Kinase 93 U/L (55-170); Glucose 114 mg/dL (74-99); Potassium 4.1 mmol/L (3.5-5.1); Sodium 143 mmol/L (137-145); Total Bilirubin 0.4 mg/dL (0.2-1.3); Total Protein 6.8 g/dL (6.3-8.2)
--- NOTE | 2018-01-08 21:43 | XR ---
EXAMINATION TYPE: XR chest 2V DATE OF EXAM: 01/08/2018 COMPARISON: 10/06/2017 INDICATION: Dysrhythmia TECHNIQUE: Frontal and lateral views of the chest are obtained. FINDINGS: The heart size is normal. The pulmonary vasculature is normal. There is elevation of the lateral left diaphragm. This is chronic.. No suspicious infiltrates are ev ident. Small left pleural effusion be difficult to exclude. IMPRESSION: 1. Probable chronic left lateral diaphragm changes. Acute process is not identified.
[2018-01-08 21:48] LABS: Appearance,Urine Clear (Clear); Bilirubin,Urine Negative (Negative); Blood,Urine Negative (Negative); Color,Urine Light Yellow; Glucose,Urine (UA) Negative (Negative); Ketones,Urine Negative (Negative); Leukocyte Esterase,Urine Negative (Negative); Nitrite,Urine Negative (Negative); PH, Urine 7.5 (5.0-8.0); Protein,Urine Negative (Negative); Specific Gravity,Urine 1.005 (1.001-1.035); Urobilinogen,Urine <2.0 mg/dL (<2.0)
[2018-01-08 21:50] LABS: Creatine Kinase MB 0.7 ng/mL (0.0-2.4); Troponin I <0.012 ng/mL (0.000-0.034)
[2018-01-08 21:58] LABS: Amphetamine Screen,Urine Not Detected (NotDetected); Barbiturate Screen,Urine Not Detected (NotDetected); Benzodiazepines Screen,Urine Not Detected (NotDetected); Cocaine Screen,Urine Not Detected (NotDetected); Methadone Screen, Urine Not Detected (NotDetected); Opiate Screen,Urine Not Detected (NotDetected); Oxycodone Screen, Urine Not Detected (NotDetected); Phencyclidine Screen,Urine Not Detected (NotDetected); Tricyclic Antidepressant,Urine Not Detected (NotDetected); Urn Cannabinoid Scrn Detected (NotDetected)
[2018-01-08 23:22] VITALS: BP 140/85; PULSE 84; TEMP 98.3
== END 2018-01-08 23:21 | disposition home or self-care (01) ==
LOC: EC 20:41
DX: I48.0 Paroxysmal atrial fibrillation (principal); Z87.891 Personal history of nicotine dependence; Z79.899 Other long term (current) drug therapy; Z87.19 Personal history of other diseases of the digestive system
CPT/HCPCS: 36415; 71046; 80053; 80306; 81003; 82550; 82553; 83735; 84443; 84484; 85025; 85610; 85730; 93005; 96360; 96361; 99285

== ENCOUNTER 2018-03-05 06:52 | Day surgery (SDC) | payer MEDICARE ==
[2018-02-25 15:33] VITALS: BMI 21.3
[~2018-03-05 06:52] MED LIST changes: -HEPARIN SODIUM,PORCINE 5,000 UNIT/ML 1 ML VIAL SQ ONE; -SCOPOLAMINE 1.5MG/72HR PATCH TRANSDERM ONE; +SODIUM CHLORIDE 0.9% 1,000 ML IV SCH; -ceFAZolin IN SWFI 2 GM/20 ML SYRINGE IVP ONE
[2018-03-05] MEDS ORDERED: IV FLUID CONTINUATION 900 ML IV ONE (08:36)
[2018-03-05] MEDS ORDERED: MIDAZOLAM 2 MG/2 ML VIAL ONE (08:36)
[2018-03-05] MEDS ORDERED: LIDOCAINE 1% INJ 10MG/ML (20 ML MDV) ONE (08:36)
[2018-03-05] MEDS ORDERED: HEPARIN SODIUM,PORCINE 5,000 UNIT/ML 1 ML VIAL ONE (08:36)
[2018-03-05] MEDS ORDERED: PROTAMINE SULFATE 10 MG/ML 5 ML VIAL IV ONE (08:36)
[2018-03-05] MEDS ORDERED: SUCCINYLCHOLINE CHLORIDE 100 MG/5 ML SYR IV ONE (08:36)
[2018-03-05] MEDS ORDERED: ISOPROTERENOL 250 MCG/1.25 ML SYR IV ONE (08:36)
[2018-03-05] MEDS ORDERED: PROPOFOL 10 MG/ML 20 ML VIAL IV ONE (08:36)
[2018-03-05] MEDS ORDERED: fentaNYL (PF) 50 MCG/ML 2 ML AMP ONE (08:36)
[2018-03-05] MEDS ORDERED: LIDOCAINE 2% INJ 20 MG/ML SQ ONE (09:15)
[2018-03-05] MEDS ORDERED: HEPARIN SOD,PORK IN 0.45% NACL 25,000 UNIT in 0.45% NACL 1 500ML.BAG IV ONE (09:35)
[2018-03-05] MEDS ORDERED: HEPARIN SODIUM 1,000 UN/ML (10ML VL) IV ONE (09:41)
[2018-03-05] MEDS ORDERED: HYDROcodone/APAP 5-325MG 1 EACH TAB PO PRN (11:30)
[2018-03-05] MEDS ORDERED: IOPAMIDOL-370 100ML BTL INJ ONE (11:30)
--- NOTE | 2018-03-05 11:47 | P.PCN ---
Preoperative Diagnosis: Diagnosis Atrial fibrillation, symptomatic, paroxysmal Sick Sinus Syndrome, daytime bradycardia, inability to tolerate medications for A. fib Procedures performed (PVI - CRYO Ablation) Invasive hemodynamic monitoring while general anesthesia, right femoral arterial line for monitoring and sampling Comprehensive diagnostic EP study with attempted arrhythmia induction CS pacing and recording Drug infusion Catheter the mapping of the tachycardia (NOT 3D mapping) Intracardiac echocardiography Pulmonary vein isolation with transseptal and comprehensive EPS, [id number] Procedure details Patient was brought to the EP lab in a fasting state. Written informed consent was obtained prior to the procedure. Procedure performed under general anesthesia After initial muscle relaxant use, muscle relaxants were not given thereafter in order to assess phrenic nerve during procedure Patient prepped and draped as per protocol Full cryo-set up with standard preparation of the cryoablation tools done Femoral Venous access obtained on the right and left groins Sheaths placed Diagnostic catheters for the high right atrium, phrenic nerve stimulation and pacing, His bundle, RV and coronary sinus placed Intracardiac echo catheter placed Long sheath placed in the right atrium Left and right transseptal catheterization performed under intracardiac echo guidance Intravenous heparin with aCT above 300 Later, catheter positioning and balloon positioning under intracardiac echo Baseline measurements Patient was in sinus rhythm with the start of the study, sinus cycle length 723 ms, MT interval 114, QRS 105, QT 354 AH 58, HV 33 Comprehensive diagnostic EP study with drug infusion Atrial pacing performed from the high right atrium and the coronary sinus RV pacing Sinus recovery times at 600 504 100 ms were 810, 898 and 911 ms AV node Wenckebach block 350 ms VA Wenckebach block less than 300 ms No atrial fibrillation induced with high dose Isuprel Transseptal catheterization performed RA pressure 18/8/12 LA pressure 20/6/11 Transseptal catheterization performed with standard sheath. The cryoablation sheath was then placed with an over the wire exchange without any acute complications. Thick intra-atrial septum with a very small fossa ovalis Small left atrium Large pulmonary veins All 4 pulmonary veins were isolated in the following sequence: Left superior followed by left inferior followed by right superior followed by right inferior The cryo-ablation balloon was placed at the os of each vein 1.5 mL of IV dye was injected to confirm an occluded vein Goal during cryoablation was to achieve complete occlusion of the pulmonary vein , achieve -30C at 30 seconds and achieve -40C at 60 seconds and a time to affect of less than 60-90 seconds, . If not the balloon was repositioned to obtain this result After completion of Cryoblation with durations from 180-240 seconds, entrance block was confirmed with the Attain circular catheter in a roving fashion around the antrum of the pulmonary veins Phrenic nerve pacing was performed from the SVC, right innominate vein area and diaphragm voltage was monitored. Diaphragmatic contractions were also monitored manually for strength of contraction. Parameter goals for each cryo freeze -30C by 30 seconds -40C by 60 seconds Mediated between minus 40-55 Thaw time greater than 10 seconds Balloon visualized by intracardiac echo to ensure that the proximal one third was within the left atrium/antrum The esophagus was intubated. Esophageal Temperature monitoring with a CIRCA catheter formed. Esophageal deflection for hypothermia of the esophagus below 32C Left superior pulmonary vein Complete isolation 60 seconds followed by 4 minutes Left inferior pulmonary vein Complete isolation 60 seconds followed by 4 minutes Right superior pulmonary vein, during phrenic nerve pacing Complete isolation but isolated PVC signals noted which could not be abolished despite Cryoblation's of 240 seconds followed by 180 seconds followed by 140 seconds Isolation of the vein achieved within 40 seconds Right inferior pulmonary vein, during phrenic nerve pacing 4 minute cryoablation complete isolation At the end of the procedure the Achieve catheter was once again used to check for entrance block Phrenic nerve stimulation was performed to confirm diaphragmatic stimulation the end of the procedure Cine fluoroscopy was performed at the very end of the procedure to confirm movement of both diaphragms with inspiration and expiration At the end of the procedure the patient was extubated Heparin was reversed Venous sheaths were removed and hemostasis assured Result Successful pulmonary vein isolation of all veins using cryo-ablation Complete entrance block in all 4 veins confirmed Isolated, dissociated PVCs noted in the right superior pulmonary vein despite rapid and complete isolation within 40 seconds of Cryoblation No evidence for phrenic nerve injury Esophageal deflection, leftwards Anesthesia: GETA
[2018-03-05] MEDS ORDERED: ACETAMINOPHEN IV (For NPO) 1,000 MG in EMPTY BAG 1 BAG IVPB ONE (12:30)
[2018-03-05] MEDS: ACETAMINOPHEN TAB 325 MG TAB PO PRN ×2 (15:11→21:16)
[2018-03-05] MEDS ORDERED: SODIUM CHLORIDE 0.9% 250 ML IV SCH (16:30)
[2018-03-05] MEDS ORDERED: SODIUM CHLORIDE 0.9% 250 ML IV ONE (16:45)
[2018-03-05] MEDS ORDERED: RIVAROXABAN 20 MG TAB PO SCH (18:00)
[2018-03-05] MEDS ORDERED: GABAPENTIN 400 MG CAP PO SCH (21:00)
[2018-03-06] MEDS: ACETAMINOPHEN TAB 325 MG TAB PO PRN (03:35)
[2018-03-06] MEDS ORDERED: PANTOPRAZOLE 40 MG TABLET PO SCH (07:30)
[2018-03-06 07:52] VITALS: RESP 18
--- NOTE | 2018-03-06 08:09 | P.DS ---
Providers Attending physician: Kirill Callejas Primary care physician: [facility] Hospital Course: Impression is doing better this morning. Yesterday in the evening he had a sudden drop in his blood pressure and he was treated with IV fluids. The 2-D echo did not show any pericardial effusion LV function was normal He continues to complain of some discomfort in the upper chest and in the epigastrium. No shortness of breath no dizziness lightheadedness no atrial fibrillation he maintains sinus rhythm. Heart rates are normal in the 80s and 90s blood pressure is normal 115/70 mmHg respirations are normal and he is afebrile Heart sounds S1 and S2 are normal no murmurs no gallops no rub breath sounds are clear no rhonchi no crackles did abdomen soft nontender. Extremities warm groins healing well groins are tender bilaterally but there is no hematoma no swelling Impression paroxysmal atrial fibrillation, symptomatic, with RVR Underlying Sick Sinus Syndrome and inability to use antiarrhythmic drugs for management of atrial fibrillation Status post cryoablation of the pulmonary veins and complete isolation of all 4 veins Esophageal deflection performed for right-sided esophagus Plan BMP, CT of the chest with contrast to assess for any mediastinal injury Continue anticoagulation Discharge home if computed tomography scan does not show any evidence for mediastinal injury or air Follow-up with Dr. Charlton 1-2 weeks Plan - Discharge Summary Discharge Rx Participant: No New Discharge Prescriptions: No Action Gabapentin [Neurontin] 400 mg PO HS Omeprazole 40 mg PO QAM Cyclobenzaprine HCl 5 mg PO DAILY PRN PRN Reason: Muscle Pain Cholecalciferol [Vitamin D3] 5,000 unit PO DAILY Rivaroxaban [Xarelto] 20 mg PO DAILY Discharge Medication List Gabapentin [Neurontin] 400 mg PO HS 10/05/17 [History] Omeprazole 40 mg PO QAM 11/23/17 [History] Cholecalciferol [Vitamin D3] 5,000 unit PO DAILY 12/26/17 [History] Cyclobenzaprine HCl 5 mg PO DAILY PRN 12/26/17 [History] Rivaroxaban [Xarelto] 20 mg PO DAILY 02/25/18 [History]
[2018-03-06] MEDS ORDERED: RX INFO: IV CONTRAST WAS GIVEN 1 EACH MISC MISCELLANE PRN (08:12)
[2018-03-06] MEDS ORDERED: SODIUM CHLORIDE 0.9% 1,000 ML IV SCH (08:30)
[2018-03-06 08:46] LABS: Anion Gap 8 mmol/L; Blood Urea Nitrogen 12 mg/dL (9-20); Calcium 9.2 mg/dL (8.4-10.2); Carbon Dioxide 27 mmol/L (22-30); Chloride 104 mmol/L (98-107); Glucose 133 mg/dL (74-99); Sodium 139 mmol/L (137-145)
[2018-03-06] MEDS ORDERED: RIVAROXABAN 20 MG TAB PO SCH (09:00)
--- NOTE | 2018-03-06 09:38 | ECHOF ---
Referral Reason:pericardial effusion MEASUREMENTS -------- HEIGHT: 180.3 cm WEIGHT: 69.4 kg BP: 94/64 IVC: 2.1 cm FINDINGS -------- Sinus rhythm. Limited Study Overall left ventricular systolic function is normal with, an EF between 55 - 60 %. There is no pericardial effusion. CONCLUSIONS -------- 1. Sinus rhythm. 2. Limited Study 3. Overall left ventricular systolic function is normal with, an EF between 55 - 60 %. 4. There is no pericardial effusion. REPTILE FARMER: Phuong Mcdaniels [facility]
[2018-03-06 11:46] VITALS: BP 138/87; PULSE 69; TEMP 97.5
--- NOTE | 2018-03-06 13:21 | CT ---
EXAMINATION TYPE: CT chest w con DATE OF EXAM: 03/06/2018 COMPARISON: Chest x-ray from January 08, 2018 HISTORY: AF ablation yesterday, look for esophageal injury. CT DLP: 217.3 mGycm. Automated Exposure Control for Dose Reduction was Utilized. TECHNIQUE: CT scan of the thorax is performed following with IV Contrast, patient injected with 100 mL of Isovue M300. FINDINGS: LUNGS: Moderate underlying emphysematous change most prominent in right lung apex is redemonstrated. There is some central bibasilar linear scarring and/or atelectasis near diaphragm. There is mildly el evated left hemidiaphragm redemonstrated. No suspicious consolidation or groundglass opacity is seen. No concerning parenchymal nodule or mass is present. No pleural effusion or pneumothorax is noted. MEDIASTINUM: There are no greater than 1 cm hilar or mediastinal lymph nodes. No cardiomegaly or pe ricardial effusion is seen. There is 4 vessel origin from aortic arch which is normal variant. No sprague spicious foci of mediastinal air is present. Main pulmonary artery measures 2.8 cm the bifurcation. A djacent ascending aorta measures 3.2 cm on axial image 32. OTHER: Cholecystectomy clips are noted. Mild multilevel spurring in the lower thoracic spine is seen. Suspected duodenal diverticulum axial image 73 along mesenteric surface partially imaged. IMPRESSION: 1. No suspicious mediastinal fluid collection or air to suggest complication or injury from recent at rial fibrillation ablation procedure.
== END 2018-03-06 14:20 | disposition home or self-care (01) ==
LOC: CATHEP 06:52 → 3OBS 11:33 → CATHEP 03-06 14:20
PROVIDERS: ATTEND Internal Medicine Clinical Cardiac Electrophysiology
DX: I48.0 Paroxysmal atrial fibrillation (principal); I49.5 Sick sinus syndrome; I49.3 Ventricular premature depolarization; E78.5 Hyperlipidemia, unspecified; M54.9 Dorsalgia, unspecified; Z79.899 Other long term (current) drug therapy; Z79.01 Long term (current) use of anticoagulants; Z87.891 Personal history of nicotine dependence; Z90.49 Acquired absence of other specified parts of digestive tract
CPT/HCPCS: 93308; 85347; 93623; 93662; 93609; 93656; 80048; 71260; C1769 ×4; C1894 ×3; C1759; C1893; C1733; C1766; C1730 ×2; J2001 ×2; J2250; J2720; J1644 ×3; J3010; J0330; J2704; Q9967 ×2

== ENCOUNTER → 2018-09-27 | Outpatient (CLI) | payer MEDICARE ==
[2018-09-27 09:38] LABS: Basophils # (A) 0.1 k/uL (0-0.2); Basophils % (A) 1 %; Eosinophils # (A) 0.2 k/uL (0-0.7); Eosinophils % (A) 2 %; HCT 52.8 % (39.0-53.0); HGB 17.4 gm/dL (13.0-17.5); Lymphocytes # (A) 2.5 k/uL (1.0-4.8); Lymphocytes % (A) 31 %; MCH 30.4 pg (25.0-35.0); MCV 92.1 fL (80.0-100.0); Mean Platelet Volume 7.1; Monocytes # (A) 0.5 k/uL (0-1.0); Monocytes % (A) 7 %; Neutrophils # (A) 4.6 k/uL (1.3-7.7); Neutrophils % (A) 57 %; Platelet Count 361 k/uL (150-450); RBC 5.74 m/uL (4.30-5.90); RDW 13.3 % (11.5-15.5)
== END ==
LOC: LABPAT 08:47
PROVIDERS: ATTEND Surgery
DX: Z01.812 Encounter for preprocedural laboratory examination (principal); K21.0 Gastro-esophageal reflux disease with esophagitis
CPT/HCPCS: 36415; 85025; 86850; 86900; 86901

== ENCOUNTER 2018-10-02 09:29 | Day surgery (SDC) | payer MEDICARE ==
[2018-09-24 16:25] VITALS: BMI 22.0
[~2018-10-02 09:29] MED LIST changes: +HEPARIN SODIUM,PORCINE 5,000 UNIT/ML 1 ML VIAL SQ ONE; +HYDROmorphone 0.5 MG/0.5 ML SYRINGE IVP PRN; -LACTATED RINGERS 1,000 ML IV SCH; +LIDOCAINE 1% 20 ML VIAL (10MG/ML) FOR IV START INTRADERMA PRN; +MIDAZOLAM (PF) 2 MG/2 ML VIAL IV PRN; -MIDAZOLAM 2 MG/2 ML VIAL IV PRN; +SCOPOLAMINE 1.5MG/72HR PATCH TRANSDERM ONE; -SODIUM CHLORIDE 0.9% 1,000 ML IV SCH; +ceFAZolin IN SWFI 2 GM/20 ML SYRINGE IVP ONE; -fentaNYL (PF) 50 MCG/ML 2 ML AMP IV PRN
[2018-10-02] MEDS: LACTATED RINGERS 1,000 ML IV SCH (10:07)
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
[2018-10-02] MEDS ORDERED: MIDAZOLAM 2 MG/2 ML VIAL ONE (11:00)
[2018-10-02] MEDS ORDERED: NEOSTIGMINE 1 MG/ML 10 ML VIAL ONE (11:00)
[2018-10-02] MEDS ORDERED: fentaNYL (PF) 50 MCG/ML 2 ML AMP ONE (11:00)
[2018-10-02] MEDS ORDERED: GLYCOPYRROLATE 0.2 MG/ML 2 ML VIAL ONE (11:00)
[2018-10-02] MEDS ORDERED: LIDOCAINE 1% INJ 10MG/ML (20 ML MDV) ONE (11:00)
[2018-10-02] MEDS ORDERED: KETOROLAC 30 MG/ML 1 ML VIAL ONE (11:00)
[2018-10-02] MEDS ORDERED: ROCURONIUM BROMIDE 10 MG/ML 10 ML VIAL IV ONE (11:00)
[2018-10-02] MEDS ORDERED: PROPOFOL 10 MG/ML 20 ML VIAL IV ONE (11:00)
[2018-10-02] MEDS ORDERED: SUCCINYLCHOLINE CHLORIDE 100 MG/5 ML SYR IV ONE (11:00)
[2018-10-02] MEDS ORDERED: BUPIVACAIN-EPI 0.5%-1:200,000 30 ML VIAL SQ ONE (11:22)
[2018-10-02] MEDS ORDERED: ONDANSETRON 4 MG/2 ML VIAL IVP PRN (11:50)
--- NOTE | 2018-10-02 11:50 | P.OP ---
Date of Procedure: 10/02/18 Preoperative Diagnosis: GERD Postoperative Diagnosis: GERD Procedure(s) Performed: Laparoscopic Liam fundoplication Anesthesia: LATONYA Surgeon: Viraj Lopez Estimated Blood Loss (ml): 5 Pathology: none sent Condition: stable Disposition: PACU Description of Procedure: The patient was placed on the operating table in the supine position. The patient received general anesthesia. And was placed in dorsal lithotomy position. The patient was prepped and draped in the usual sterile fashion. The skin incision sites were anesthetized with 1% local Xylocaine. The skin was incised in the left periumbilical area and then using a blade less 5 mm trocar under direct visualization panel cavity was entered. After adequate insufflation the laparoscope was then placed into the peritoneal cavity. Next a 5 mm trochars placed in the right epigastric position. Another 5 millimeter trocar the right lateral position. Another 5 millimeter trocar in the left lateral position a 5 mm trocar is placed in the left epigastric position. And then the initial 5 mm trocar was exchanged for a 10 mm trocar. The left lateral lobe liver was retracted. The hernia was seen. The crural defect was then dissected using the Harmonic scissors device. A 360 crural dissection was performed the esophagus stomach was reduced back into the peritoneal Cavity. The crural defect was then closed using 2-0 Ethibond suture. Next the fundus of the stomach was mobilized using the Rye scissors device. and then a 58-Greek bougie dilator was placed oropharynx passed into the esophagus and stomach the fundal plication wrap was then performed by grasping the fundus posteriorly and bringing it around the esophagus and stomach fundoplication was then performed using 2-0 Ethibond suture. Care was taken that the fundal location rested over top of the intra-abdominal esophagus. There was no injury seen to the stomach or esophagus. The dilator was then withdrawn. The abdomen was irrigated there is no bleeding seen. The trochars were then withdrawn and then skin incision sites were closed using 3-0 Monocryl suture Steri-Strips are applied. Patient thought procedure well and sent to recovery room in stable condition.
[2018-10-02] MEDS: METOCLOPRAMIDE 5 MG/ML 2 ML VIAL IVP SCH ×2 (14:00→17:47)
[2018-10-02] MEDS: D5-0.45% NACL WITH KCL 20MEQ/L 1,000 ML IV SCH ×2 (15:28→22:55)
[2018-10-02 20:07] VITALS: RESP 16
--- NOTE | 2018-10-02 20:37 | FL ---
EXAMINATION TYPE: FL esophagus cervic/pharynx DATE OF EXAM: 10/02/2018 HISTORY: Post Reuben fundoplication COMPARISON: NONE TECHNIQUE: A single contrast esophagram is performed utilizing Isovue-370. FINDINGS: Contrast was swallowed without difficulty and passed and the esophagus. There is severe delay at the level the GE junction with only a small amount contrast passing 5 minutes. At 10 minutes there is dilma roximately 40% contrast passed into the stomach. No obvious extravasation. There was evidence of a moderate amount of free intraperitoneal air likely is related the patient's recent postoperative status. Correlate clinically.. IMPRESSION: Severe obstruction of the GE junction as discussed above. There is evidence of free intr aperitoneal air likely postsurgical. No obvious extravasation.
[2018-10-02] MEDS: HYDROmorphone 1 MG/ML 1 ML SYRINGE IVP PRN (21:13)
[2018-10-03] MEDS: METOCLOPRAMIDE 5 MG/ML 2 ML VIAL IVP SCH ×3 (00:03→13:06)
[2018-10-03] MEDS: LACTATED RINGERS 1,000 ML IV SCH (01:03)
[2018-10-03] MEDS: D5-0.45% NACL WITH KCL 20MEQ/L 1,000 ML IV SCH (05:25)
[2018-10-03] MEDS: HYDROmorphone 1 MG/ML 1 ML SYRINGE IVP PRN (05:26)
[2018-10-03 07:49] VITALS: BP 107/71; PULSE 61; TEMP 97.6
[2018-10-03] MEDS ORDERED: ENOXAPARIN 40 MG/0.4 ML SYRINGE SQ SCH (09:00)
--- NOTE | 2018-10-03 10:15 | P.DS ---
Providers Expected date of discharge: 10/03/18 Attending physician: Viraj Lopez Consults: 10/02/18 11:50 Consult Physician Routine Consulting Provider: Lon Oliva Consult Reason/Comments: Medical management Do you want consulting provider notified?: Yes Primary care physician: Betina Rothman Hospital Course: 57-year-old male who underwent elective laparoscopic Liam fundoplication due to history of GERD. Patient is doing well postoperatively. Esophagram revealed obstruction to GE junction most likely related to postoperative edema. Patient reports this morning he is able to swallow foods without difficulty. Reports his pain is tolerable. Denies nausea or vomiting. He has been up ambulating. Vital signs are stable. He is stable for discharge home today. He is to follow up with Dr. Lopez in 1 week. Please see EMR for further hospital course details. DISCHARGE DIAGNOSIS: 1. GERD, status post laparoscopic Liam fundoplication Nurse practitioner note has been reviewed by physician. Signing provider agrees with the documented findings, assessment, and plan of care. Plan - Discharge Summary Discharge Rx Participant: No New Discharge Prescriptions: New HYDROcodone/APAP 7.5-325MG [[place] 7.5-325] 1 tab PO Q4H PRN 3 Days #18 tab PRN Reason: Pain Docusate [Colace] 100 mg PO BID #30 capsule No Action Gabapentin [Neurontin] 400 mg PO HS Omeprazole 40 mg PO BID Cyclobenzaprine HCl 5 mg PO DAILY PRN PRN Reason: Muscle Pain Cholecalciferol [Vitamin D3] 5,000 unit PO DAILY Discharge Medication List Gabapentin [Neurontin] 400 mg PO HS 10/05/17 [History] Omeprazole 40 mg PO BID 11/23/17 [History] Cholecalciferol [Vitamin D3] 5,000 unit PO DAILY 12/26/17 [History] Cyclobenzaprine HCl 5 mg PO DAILY PRN 12/26/17 [History] Docusate [Colace] 100 mg PO BID #30 capsule 10/02/18 [Rx] HYDROcodone/APAP 7.5-325MG [[place] 7.5-325] 1 tab PO Q4H PRN 3 Days #18 tab 10/02 [Rx] Follow up Appointment(s)/Referral(s): Viraj Lopez MD [STAFF PHYSICIAN] - 1 Week Activity/Diet/Wound Care/Special Instructions: No driving while taking [place] No lifting over 10 pounds You may shower. No soaking or tub baths Very light activity until you are reevaluated at your follow up appointment with your surgeon
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
[2018-10-03 12:27] LABS: Basophils # (A) 0.1 k/uL (0-0.2); Basophils % (A) 0 %; Eosinophils # (A) 0.1 k/uL (0-0.7); Eosinophils % (A) 1 %; HCT 47.7 % (39.0-53.0); Lymphocytes # (A) 2.4 k/uL (1.0-4.8); Lymphocytes % (A) 16 %; MCH 30.6 pg (25.0-35.0); MCHC 33.6 g/dL (31.0-37.0); MCV 91.1 fL (80.0-100.0); Mean Platelet Volume 7.7; Monocytes % (A) 7 %; Neutrophils # (A) 10.8 k/uL (1.3-7.7); Neutrophils % (A) 74 %; Platelet Count 338 k/uL (150-450); RBC 5.24 m/uL (4.30-5.90); RDW 13.2 % (11.5-15.5); WBC 14.7 k/uL (3.8-10.6)
[2018-10-03 12:33] LABS: ALT 77 U/L (21-72); AST 58 U/L (17-59); Albumin 4.3 g/dL (3.5-5.0); Alkaline Phosphatase 67 U/L (38-126); Anion Gap 8 mmol/L; Blood Urea Nitrogen 12 mg/dL (9-20); Calcium 9.7 mg/dL (8.4-10.2); Carbon Dioxide 27 mmol/L (22-30); Chloride 105 mmol/L (98-107); Glucose 99 mg/dL (74-99); Potassium 4.2 mmol/L (3.5-5.1); Sodium 140 mmol/L (137-145); Total Bilirubin 0.7 mg/dL (0.2-1.3); Total Protein 6.7 g/dL (6.3-8.2)
[2018-10-03] MEDS ORDERED: GABAPENTIN 400 MG CAP PO SCH (21:00)
== END 2018-10-03 13:20 | disposition home or self-care (01) ==
LOC: OR 09:29 → 4SSUR 13:17 → OR 10-03 13:20
PROVIDERS: ATTEND Surgery
DX: K21.0 Gastro-esophageal reflux disease with esophagitis (principal); K44.9 Diaphragmatic hernia without obstruction or gangrene; E78.5 Hyperlipidemia, unspecified; I47.1 Supraventricular tachycardia; Z79.899 Other long term (current) drug therapy; Z86.79 Personal history of other diseases of the circulatory system; Z87.891 Personal history of nicotine dependence; Z90.49 Acquired absence of other specified parts of digestive tract
CPT/HCPCS: 80053; 85025; 74210; 43280; J2250; J1644; J1100; J2710; J2765 ×2; J2405; J2001; J1650; J3010; J1885; J1170 ×2; J0330; J2704; J0690; Q9967; 86850; 86900; 86901

== ENCOUNTER → 2021-05-31 | Outpatient (CLI) | payer MEDICARE ==
--- NOTE | 2021-05-31 11:10 | FL ---
EXAMINATION TYPE: FL barium swallow DATE OF EXAM: 05/31/2021 LIMITED ESOPHAGRAM: CLINICAL HISTORY: History of Liam fundoplication surgery 2019 with weight loss and dysphagia. TECHNIQUE: Limited esophagram is performed utilizing 40 oz of barium . A total of 20 seconds of fluo roscopic time was utilized during procedure and 41 images obtained. Comparison: Prior esophagram October 02, 2018 FINDINGS: The patient swallowed contrast without difficulty or delay. Esophageal peristalsis and mo tility are within normal limits. There is good flow of contrast along the diaphragmatic hiatus into t he stomach, there is no evidence of contrast extravasation to suggest leak. No recurrent hiatal herni a is seen. Patient remains asymptomatic. Surgical changes at level of diaphragm redemonstrated. IMPRESSION: No evidence of leak or significant obstruction. No recurrent hiatal hernia.
== END | disposition home or self-care (01) ==
LOC: RADUSWWP 09:55
PROVIDERS: ATTEND Family Medicine
DX: R13.10 Dysphagia, unspecified (principal); R63.4 Abnormal weight loss
CPT/HCPCS: 74220

== ENCOUNTER → 2023-03-01 | Outpatient (CLI) | payer MEDICARE ==
--- NOTE | 2023-04-06 07:39 | CE ---
CARDIAC ELECTROPHYSIOLOGY REPORT STUDY PERFORMED: A 14-day event monitor. INDICATION: Rule out cardiac arrhythmia. The patient was monitored for 14 days. The baseline rhythm appeared to be sinus mechanism. Frequent premature ventricular contraction noted. There was also ventricular couplets noted. The patient did have multiple episodes of paroxysmal atrial tachycardia noted as well. No significant sinus pause or sinus arrest seen. No evidence of any advanced AV block noted. CONCLUSION: 1. This is a 14-day event monitor. 2. The baseline rhythm appeared to be sinus mechanism. 3. Frequent premature ventricular contraction noted. 4. The patient did have multiple episodes of a paroxysmal atrial tachycardia. 5. The patient did not have any evidence of sinus pause or sinus arrest seen. MMODL / IJN: [id number] /
== END | disposition home or self-care (01) ==
LOC: RADECHMAIN 12:21
PROVIDERS: ATTEND Family Medicine
DX: I49.3 Ventricular premature depolarization (principal); I47.1 Supraventricular tachycardia; R00.2 Palpitations
CPT/HCPCS: 93270

== ENCOUNTER → 2023-03-28 | Outpatient (CLI) | payer MEDICARE ==
--- NOTE | 2023-03-28 10:40 | CA ---
Transthoracic Echo Report Name: Cornelius Sawant Age: 62 Gender: M : 1960 Exam Date: 03/28/2023 08:08 Exam Location: [facility] Ht (in): 71 Wt (lb): 150 Ordering Physician: Betina Rothman MD Attending/Referring Phys: Product Marketing Manager Aretha Bermudez RDCS Procedure CPT: Indications: R00.2 palpitations Cardiac Hx: Technical Quality: Fair Contrast 1: Total Dose (mL): Contrast 2: Total Dose (mL): MEASUREMENTS (Male / Female) Normal Values 2D ECHO LV Diastolic Diameter PLAX 5.1 cm 4.2 - 5.9 / 3.9 - 5.3 cm LV Systolic Diameter PLAX 4.0 cm IVS Diastolic Thickness 0.9 cm 0.6 - 1.0 / 0.6 - 0.9 cm LVPW Diastolic Thickness 0.9 cm 0.6 - 1.0 / 0.6 - 0.9 cm LV Relative Wall Thickness 0.4 RV Internal Dim ED PLAX 3.6 cm LV Diastolic Volume MOD BP 85.4 cm??? 67 - 155 / 56 - 104 cm??? LV Systolic Volume MOD BP 41.3 cm??? 22 - 58 / 19 - 49 cm??? LV Ejection Fraction MOD BP 51.6 % >= 55 % LV Cardiac Index MOD BP 1388.5 cm???/min???m??? LV Diastolic Volume MOD 4C 72.8 cm??? LV Systolic Volume MOD 4C 41.5 cm??? LV Ejection Fraction MOD 4C 42.9 % LV Cardiac Index MOD 4C 984.7 cm???/min???m??? LV Diastolic Length 4C 6.4 cm LV Systolic Length 4C 6.6 cm LV Diastolic Volume MOD 2C 90.7 cm??? LV Systolic Volume MOD 2C 37.9 cm??? LV Ejection Fraction MOD 2C 58.2 % LV Cardiac Index MOD 2C 1665.2 cm???/min???m??? LV Diastolic Length 2C 7.1 cm LV Systolic Length 2C 6.0 cm LA Volume 32.7 cm??? 18 - 58 / 22 - 52 cm??? RV Diastolic Basal Diameter 3.6 cm 2.0 - 2.8 cm M-MODE Aortic Root Diameter MM 3.3 cm LA Systolic Diameter MM 3.6 cm LA Ao Ratio MM 1.1 AV Cusp Separation MM 2.2 cm DOPPLER AV Peak Velocity 119.8 cm/s AV Peak Gradient 5.7 mmHg AV Mean Velocity 76.6 cm/s AV Mean Gradient 2.7 mmHg AV Velocity Time Integral 23.6 cm LVOT Peak Velocity 90.6 cm/s LVOT Peak Gradient 3.3 mmHg LVOT Velocity Time Integral 18.9 cm MV Area PHT 3.0 cm??? Mitral E Point Velocity 79.6 cm/s Mitral A Point Velocity 65.1 cm/s Mitral E to A Ratio 1.2 MV Deceleration Time 254.3 ms MV E' Velocity 6.8 cm/s Mitral E to MV E' Ratio 11.7 TR Peak Velocity 235.0 cm/s TR Peak Gradient 22.1 mmHg Right Ventricular Systolic Press 27.1 mmHg FINDINGS Left Ventricle Left ventricular cavity size normal. Normal Left ventricular wall thickness. Mildly decreased left ventricular ejection fraction. Left ventricular ejection fraction is estimated at 45-50 %. Right Ventricle Moderately increased basal right ventricular diameter. Right ventricular systolic pressure within normal limits. Right Atrium Mild right atrial dilatation. Left Atrium Normal left atrial size. Mitral Valve Structurally normal mitral valve. Mild mitral annular calcification. Trace to mild mitral regurgitation. Aortic Valve Trileaflet aortic valve. No aortic valve stenosis or regurgitation. Tricuspid Valve Structurally normal tricuspid valve. Mild tricuspid regurgitation. Pulmonic Valve Structurally normal pulmonic valve. Pericardium No pericardial effusion. Aorta Normal size aortic root and proximal ascending aorta. CONCLUSIONS Mildly reduced LV systolic function ejection fraction 45% Mildly enlarged right ventricle Previewed by: Dr. Kirill Callejas MD (Electronically Signed) Final Date: 28 March 2023 10:39
--- NOTE | 2023-03-28 22:46 | US ---
EXAMINATION TYPE: US duplex aorta DATE OF EXAM: 03/28/2023 COMPARISON: 05/24/2016 CLINICAL INDICATION: Male, 62 years old with history of z13.6 screening for aaa, Z82.49, Z87.891; Dis wilfred aorta dilation noted 2015 TECHNIQUE: Multiple sonographic images of the abdominal aorta are obtained. FINDINGS: EXAM MEASUREMENTS: Abdominal Aorta: Proximal: 2.4 x 2.1 cm Mid: 2.2 x 2.2 cm Distal: 2.5 x 2.6 cm Bifurcation: 1.1 x 0.9 cm (RT) 1.3 x 1.2 cm (LT) PLATFORM ATTENDANT NOTES: Distal aorta dilation noted IMPRESSION: 1. Mild fusiform prominence distal abdominal aorta with AP diameter 2.5 cm. 2. No aneurysmal dilatation evident.
== END | disposition home or self-care (01) ==
LOC: RADUSWWP 07:33
PROVIDERS: ATTEND Family Medicine
DX: Z13.6 Encounter for screening for cardiovascular disorders (principal); R00.2 Palpitations; Z87.891 Personal history of nicotine dependence; Z82.49 Family history of ischemic heart disease and other diseases of the circulatory system
CPT/HCPCS: 93306; 93979

== ENCOUNTER → 2023-08-16 | Outpatient (CLI) | payer MEDICARE ==
--- NOTE | 2023-08-19 11:53 | CTL ---
EXAMINATION TYPE: CT Low Dose Lung DATE OF EXAM: 08/16/2023 9:36 AM CLINICAL INDICATION:Male, 62 years old with history of Z12.2 LUNG CA SCREEN Z87.891; History of shabana simeon dependence. , history of tobacco use. COMPARISON: None. This is a baseline study. TECHNIQUE: CT scan of the chest obtained without contrast from approximately the lung apices through the upper abdomen. Axial, coronal and sagittal reformatted images were obtained. Low dose technique w as utilized for nodule screening purposes. CT DLP: 99.8 mGycm, Automated exposure control for dose reduction was used. CT Contrast: IV contrast used: None. Oral contrast used: None. FINDINGS: Lack of intravenous contrast and low dose technique limits the evaluation of the vascular and soft ti ssue structures. LUNGS: No evidence of pulmonary fibrosis. No evidence of focal consolidation, pneumothorax or pleural effusion. There are emphysematous changes bilaterally, moderate to severe in degree with a upper lob e predominance. Nodules: A 5.4 mm nodular density on the right along the oblique fissure image 45 series 6; this may represent fissural lymph node. Otherwise no greater than 6 mm nodules are detected. PLEURA: No sizeable pleural effusion or pneumothorax. AIRWAY: Central airways are patent. LOWER NECK: No significant findings. MEDIASTINUM: No evidence of enlarged nodes.. HEART: Heart size upper normal. No significant coronary arterial calcification seen.. No appreciable pericardial effusion. Somewhat prominent pericardial fat. VASCULATURE: Moderate atherosclerotic calcifications of the aorta and branches. Ascending aorta is 3 .4 CM, descending is 2.6 CM. Aorta is considered within normal limits in size. 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 Also the left vertebral artery takes off directly from the arch. Pulmonary trunk measures 2.8 CM , normal in size. Vessels otherwise not further assessed without contrast. SOFT TISSUES/LYMPH NODES: Mild bilateral gynecomastia. No axillary adenopathy. UPPER ABDOMEN: Fairly circumscribed 1.7 cm hepatic hypodensity towards the dome, favored to be a cyst . Postop changes in the region of the gastroesophageal junction. Circumferentially thickened appearan ce of the distal esophageal wall. Radiodensities in the gastrohepatic ligament region could be postop erative changes or calcified granulomas. No mass of the visualized adrenals. MUSCULOSKELETAL: Mild to moderate disc degeneration changes are present throughout the thoracolumbar spine. No acute findings. Mild elevation of the left hemidiaphragm with chronic appearing blunting of the left costophrenic angle. IMPRESSION: 1. Moderate to severe pulmonary emphysema. 2. Small nodule or fissural lymph node on the right. No clinically significant pulmonary nodules oth erwise. CT LUNG RAD AND CT CHEST RECOMMENDATION: Lung-Rad 2 Benign Appearance or Behavior: Continue annual sc reening with LDCT in 12 months. C Modifier (Personal history of lung cancer?): No. S Modifier (Other clinically significant or potentially significant findings?): No. Other significant or potentially significant abnormalities: None. Recommend smoking cessation (if current smoker), or continuation of smoking cessation (if prior smoke r). Annual screening for lung cancer with low-dose computed tomography is recommended in adults ages 55 to 77 years who have a 30 pack-year smoking history and currently smoke or have quit within the pa st 15 years. Screening should be discontinued once a person has not smoked for 15 years or develops a health problem that substantially limits life expectancy or the ability or willingness to have curat miguel lung surgery. Lung rads 2021 [email or web address]
== END | disposition home or self-care (01) ==
LOC: RADCTMAIN 09:19
PROVIDERS: ATTEND Internal Medicine Critical Care Medicine
DX: Z12.2 Encounter for screening for malignant neoplasm of respiratory organs (principal); R91.1 Solitary pulmonary nodule; J43.9 Emphysema, unspecified; Z87.891 Personal history of nicotine dependence
CPT/HCPCS: 71271